=== PATIENT | female | born 1980 | race Caucasian/White ===

== ENCOUNTER 2021-11-18 10:27 | Outpatient (CLI) | payer BC, SELFPAY ==
[2021-11-18 11:59] LABS: Chloride* 102 mmol/L (96-114); Potassium* 4.7 mmol/L (3.6-5.1); Sodium* 139 mmol/L (135-149)
[2021-11-18 12:02] LABS: Blood Urea Nitrogen* 11 mg/dL (5-24); Carbon Dioxide* 27 mmol/L (20-32); Creatinine* 0.7 mg/dL (0.5-1.5); Estimated Glomerular Filt Rate 112 ml/min; Glucose* 96 mg/dL (60-115)
[2021-11-18 12:03] LABS: Calcium* 10.3 mg/dL (8.4-10.6)
== END 2021-11-18 10:28 | disposition home or self-care (01) ==
LOC: NFLDREF 10:28
PROVIDERS: Visit Provider Family Medicine
DX: E87.6 Hypokalemia (principal); I10 Essential (primary) hypertension
CPT/HCPCS: 80048

== ENCOUNTER 2021-11-22 09:48 | Emergency (ER) | payer BC, SELFPAY ==
[2021-11-22] VITALS (9 sets, daily range): BP systolic 113–178; BP diastolic 70–86; PULSE 53–97; RESP 18–21; TEMP 37.1; O2SAT 96–98; BMI 39.9
--- NOTE | 2021-11-22 10:33 | ED_ITS ---
HPI - General Adult General Time Seen by Provider: 10:33 Date Seen: 11/22/21 Chief complaint: Weakness Stated complaint: Chest pain, low bp Time Seen by Provider: 11/22/21 10:32 Source: patient and RN notes reviewed Mode of arrival: ambulatory Limitations: no limitations History of Present Illness HPI narrative: Patient is a 41-year-old female coming in with complaints of some chest heaviness and headache. She has had a complex history recently. About 2 weeks ago she was hospitalized for 2 days at [facility]. She had a syncopal episode well at [facility]. She started to feel dizzy and stood up from a high top and her mom was able to help her down to the ground. They took her from [facility] directly to [facility] so she could see Cardiology. She states she never did see Cardiology but had an echo and a CT will [facility]. They were able to tell me that she was in bigeminy. This is the 1st time she has ever been noted to be having frequent PVCs. With the syncopal episode her blood pressure was low and her pulse was low. She is scheduled to see Cardiology here on the of this month. She just is not feeling well. The tried initiating her on metoprolol XL 25 mg twice a day but within a couple of days of taking this she was just so fatigued and wiped out, did not tolerated. Dr. Alonzo her primary had her try to take a half dose of the metoprolol and she tried this for couple days and was intolerant due to symptoms. They are planning on trying her on what sounds to be Cardizem or diltiazem but he wanted her to have the metoprolol out of her system. She has an event monitor on right now which she is supposed to turn back in tomorrow. This is through [facility]. With the syncopal episode, she had an underlying respiratory infection. She had tested for strep and COVID a and was told they were negative. She had testing the day before the syncopal episode. Being on metoprolol her blood pressure went low as well. She has stated that her blood pressures are up and down and all over the place. After taking metoprolol, 1 time her systolic was 98 and she felt symptomatic with that. Related Data Home Medications Medication Instructions Recorded Confirmed drospirenone 3 mg-ethinyl 1 tab PO 11/07/21 11/18/21 estradiol 0.02 mg tablet (Vestura (28)) ibuprofen 200 mg tablet 600 mg PO Q6H PRN 11/18/21 11/18/21 Previous Rx's Medication Instructions Recorded diltiazem HCl 120 mg capsule,24 120 mg PO QDAY #30 caps 11/25/21 hr,extended release Allergies Allergy/AdvReac Type Severity Reaction Status Date / Time No Known Drug Allergies Allergy Verified 11/18/21 09:08 Review of Systems Status of ROS: Reports: 10 or more systems reviewed and unremarkable except as noted in History and below [facility] Medical History (Updated 11/22/21 @ 15:20 by Nohemi Matos MD) History of acute otitis externa Hypertension URI (upper respiratory infection) Social History Smoking Status: Never smoker Do you use any of these nicotine containing products: None Second hand tobacco smoke exposure: No How often do you have a drink containing alcohol: never How often do you have six or more drinks on one occasion: Never AUDIT-C Alcohol total score: 0 Non-prescribed substance use: denies use service: No Exam Const: Vital Signs, click to edit/add: Vital Signs - 24 hr 11/22/21 10:00 11/22/21 12:00 11/22/21 12:30 Temperature 98.8 F Pulse Rate [Right Pulse Oximeter] 53 L 75 74 Respiratory Rate 18 21 Blood Pressure [Ri ght Upper Arm] 178/82 H 147/86 H 113/74 Pulse Oximetry 98 96 96 Oxygen Delivery Me thod Room Air Room Air Room Air 11/22/21 13:00 11/22/21 13:30 Temperature Pulse Rate [Right Pulse Oximeter] 97 93 Respiratory Rate Blood Pressure [Ri ght Upper Arm] 135/78 130/83 Pulse Oximetry 97 97 Oxygen Delivery Me thod Room Air Room Air Documenting provider has reviewed patient's vital signs: yes Common normals: no apparent distress, oriented x3, no limitations, healthy appearing, alert and well nourished General appearance: cooperative, comfortable and well kempt Nutritional appearance: overweight HENMT: Common normals: normocephalic, head/scalp atraumatic, hearing grossly normal bilaterally, external ears normal, nasal mucous membranes and turbinates normal, moist oral mucous membranes, oropharynx normal, dentition normal and gingiva normal Head and scalp: normocephalic and atraumatic Nose: nasal mucous membranes and turbinates normal External ear: external ears normal Eye: Common normals: PERRL, EOMs intact bilaterally, conjunctivae normal and no scleral icterus Conjunctiva: conjunctiva(e) normal Pupil: PERRL Neck & C-Spine: Common normals: full ROM, no lymphadenopathy, supple, no meningeal signs, no JVD and thyroid normal Thyroid: thyroid normal Resp: Common normals: normal respiratory effort, no retractions, no use of accessory muscles and clear to auscultation bilaterally Auscultation: clear to auscultation bilaterally Cardio: Common normals: no JVD, regular rate, regular rhythm (With ectopy noted that coincides with PVCs on the monitor), S1 normal heart sound, S2 normal heart sound, no gallops, no clicks and no murmurs Rate: regular rate Rhythm: regular rhythm (With ectopy noted that coincides with PVCs on the monitor) Heart sounds: S1 normal and S2 normal GI: Common normals: Normal to inspection, nondistended, normoactive bowel sounds present, soft to palpation, non-tender, no hepatosplenomegaly, no masses and no bruits Palpation: soft and no hepatosplenomegaly Extremity: Common normals: normal to inspection, full ROM, normal capillary refill, no joint enlargement, no clubbing, cyanosis or edema, no calf tenderness and no pedal edema Neuro: Common normals: oriented x3, CN's II-XII intact bilaterally, moves all extremities, no focal motor deficits and no sensory deficits noted Sensorium/orientation: alert Meningeal signs: no meningeal signs Speech: speech normal Gait (neuro): normal gait Psych: Appearance: well ket Course Course Hospital Course: Will obtain portable chest x-ray, have her on cardiac monitoring and pulse oximetry. We are going to give her 1000 mg of Tylenol for her headache at this point. We will get appropriate labs. Besides the headache, she has a nonfocal neurologic exam. Will likely talk to Cardiology once I have some of mild laboratory evaluation back. Watching on the monitor she goes into PVCs in a bigeminy and trigeminy pattern and then will have just irregular PVCs briefly. They seem to be unifocal morphology including on the EKGs. On the director of cardiac rehabilitation when I was in with her I did see brief couple 2nd run of sinus tachycardia in the low 100s, about 110 when I was watching. Consultations Consultation #1: Did speak with cardiology on-call through [facility]. Went through the history, patient's current symptoms. He recommended that patient does follow up outpatient with Cardiology. At times later in the course she was in more consistent sinus rhythm. Blood pressures were in the 130s 140s near the end of her stay here. When I questioned her just a while ago, she really cannot feel the PVCs. And is obviously quite symptomatic with use of metoprolol. I will try to talk to Dr. Alonzo regarding her situation. The site worker from [facility] did not recommend any further interventions. Time: 14:15 Vital Signs Vital signs: Initial Vital Signs Temperature 98.8 F 11/22/21 10:00 Temperature Source Temporal Artery Scan 11/22/21 10:00 Pulse Rate 53 L 11/22/21 10:00 Respiratory Rate 18 11/22/21 10:00 Blood Pressure 178/82 H 11/22/21 10:00 Blood Pressure Mean 114 11/22/21 10:00 Blood Pressure Position Sitting 11/22/21 10:00 Pulse Oximetry 98 11/22/21 10:00 Oxygen Delivery Method 11/22/21 10:00 Vital Signs Temperature 98.8 F 11/22/21 10:00 Pulse Rate 53 L 11/22/21 10:00 Respiratory Rate 18 11/22/21 10:00 Blood Pressure 178/82 H 11/22/21 10:00 Pulse Oximetry 98 11/22/21 10:00 Oxygen Delivery Method 11/22/21 10:00 Temperature 98.8 F 11/22/21 10:00 Pulse Rate 60 11/22/21 15:30 Respiratory Rate 21 11/22/21 14:30 Blood Pressure 170/79 H 11/22/21 15:30 Pulse Oximetry 97 11/22/21 15:30 Oxygen Delivery Method 11/22/21 15:30 Medical Decision Making Lab Data Lab results reviewed: Yes I reviewed the patient's lab results Labs: Lab Results 11/22/21 11/22/21 11/22/21 Range/Units 11:15 11:15 11:15 WBC 10.90 (4.50-11.00) K/uL RBC 4.82 (4.00-5.20) m/uL Hgb 13.7 (12.0-16.0) gm/dL Hct 41.4 (33.0-51.0) % MCV 86 (80-100) fL MCH 28 (26-34) pg MCHC 33 (32-36) gm/dL RDW Coeff of Saloni 12.6 (11.5-15.5) % Plt Count 322 (140-440) K/uL Neut % (Auto) 55.2 (42.0-72.0) % Lymph % (Auto) 33.8 (20-44) % [place] % (Auto) 9.4 (0.0-11.0) % Eos % (Auto) 0.6 (0.0-7.0) % Baso % (Auto) 0.7 (0.0-3.0) % Neut # (Auto) 6.02 (1.7-7.0) K/uL Lymph # (Auto) 3.68 H (0.90-2.90) K/uL [place] # (Auto) 1.00 H (0.00-0.90) K/UL Eos # (Auto) 0.07 (0.00-0.50) K/uL Baso # (Auto) 0.08 (0.00-0.30) K/uL Abs Immat Gran (auto) 0.03 (0.00-0.30) K/uL D-Dimer Quant (PE/DVT) 0.30 (0.00-0.50) ug/ml VBG pH (7.32-7.43) VBG pCO2 (40-50) mmHG VBG pO2 (25-47) mmHG VBG HCO3 (21-28) mmol/L Sodium 139 (135-149) mmol/L Potassium 4.4 (3.6-5.1) mmol/L Chloride 107 (96-114) mmol/L Carbon Dioxide 22 (20-32) mmol/L BUN 10 (5-24) mg/dL Creatinine 0.6 (0.5-1.5) mg/dL Estimated Creat Clear 130.25 Estimated GFR 116 ml/min Glucose 90 (60-115) mg/dL Lactate (0.5-1.9) mmol/L Calcium 9.5 (8.4-10.6) mg/dL Magnesium (1.5-2.6) mg/dL Total Bilirubin 0.3 (0.1-1.5) mg/dL AST 52 H (12-35) U/L ALT 28 (4-35) U/L Alkaline Phosphatase 91 (40-150) U/L C-Reactive Protein 1.3 H (0.5-1.0) mg/dL NT-Pro-B Natriuret Pep (0-125) PG/mL Total Protein 7.4 (6.0-8.3) g/dL Albumin 4.2 (3.3-5.0) g/dL TSH (0.270-4.200) uIU/mL POC Troponin I (0.01-0.04) ng/ml 11/22/21 11/22/21 11/22/21 Range/Units 11:15 11:15 11:15 WBC (4.50-11.00) K/uL RBC (4.00-5.20) m/uL Hgb (12.0-16.0) gm/dL Hct (33.0-51.0) % MCV (80-100) fL MCH (26-34) pg MCHC (32-36) gm/dL RDW Coeff of Saloni (11.5-15.5) % Plt Count (140-440) K/uL Neut % (Auto) (42.0-72.0) % Lymph % (Auto) (20-44) % [place] % (Auto) (0.0-11.0) % Eos % (Auto) (0.0-7.0) % Baso % (Auto) (0.0-3.0) % Neut # (Auto) (1.7-7.0) K/uL Lymph # (Auto) (0.90-2.90) K/uL [place] # (Auto) (0.00-0.90) K/UL Eos # (Auto) (0.00-0.50) K/uL Baso # (Auto) (0.00-0.30) K/uL Abs Immat Gran (auto) (0.00-0.30) K/uL D-Dimer Quant (PE/DVT) (0.00-0.50) ug/ml VBG pH 7.433 H (7.32-7.43) VBG pCO2 39 L (40-50) mmHG VBG pO2 36.1 (25-47) mmHG VBG HCO3 26 (21-28) mmol/L Sodium (135-149) mmol/L Potassium (3.6-5.1) mmol/L Chloride (96-114) mmol/L Carbon Dioxide (20-32) mmol/L BUN (5-24) mg/dL Creatinine (0.5-1.5) mg/dL Estimated Creat Clear Estimated GFR ml/min Glucose (60-115) mg/dL Lactate 1.5 (0.5-1.9) mmol/L Calcium (8.4-10.6) mg/dL Magnesium 2.0 (1.5-2.6) mg/dL Total Bilirubin (0.1-1.5) mg/dL AST (12-35) U/L ALT (4-35) U/L Alkaline Phosphatase (40-150) U/L C-Reactive Protein (0.5-1.0) mg/dL NT-Pro-B Natriuret Pep 573 H (0-125) PG/mL Total Protein (6.0-8.3) g/dL Albumin (3.3-5.0) g/dL TSH 1.150 (0.270-4.200) uIU/mL POC Troponin I (0.01-0.04) ng/ml 11/22/21 Range/Units 11:15 WBC (4.50-11.00) K/uL RBC (4.00-5.20) m/uL Hgb (12.0-16.0) gm/dL Hct (33.0-51.0) % MCV (80-100) fL MCH (26-34) pg MCHC (32-36) gm/dL RDW Coeff of Saloni (11.5-15.5) % Plt Count (140-440) K/uL Neut % (Auto) (42.0-72.0) % Lymph % (Auto) (20-44) % [place] % (Auto) (0.0-11.0) % Eos % (Auto) (0.0-7.0) % Baso % (Auto) (0.0-3.0) % Neut # (Auto) (1.7-7.0) K/uL Lymph # (Auto) (0.90-2.90) K/uL [place] # (Auto) (0.00-0.90) K/UL Eos # (Auto) (0.00-0.50) K/uL Baso # (Auto) (0.00-0.30) K/uL Abs Immat Gran (auto) (0.00-0.30) K/uL D-Dimer Quant (PE/DVT) (0.00-0.50) ug/ml VBG pH (7.32-7.43) VBG pCO2 (40-50) mmHG VBG pO2 (25-47) mmHG VBG HCO3 (21-28) mmol/L Sodium (135-149) mmol/L Potassium (3.6-5.1) mmol/L Chloride (96-114) mmol/L Carbon Dioxide (20-32) mmol/L BUN (5-24) mg/dL Creatinine (0.5-1.5) mg/dL Estimated Creat Clear Estimated GFR ml/min Glucose (60-115) mg/dL Lactate (0.5-1.9) mmol/L Calcium (8.4-10.6) mg/dL Magnesium (1.5-2.6) mg/dL Total Bilirubin (0.1-1.5) mg/dL AST (12-35) U/L ALT (4-35) U/L Alkaline Phosphatase (40-150) U/L C-Reactive Protein (0.5-1.0) mg/dL NT-Pro-B Natriuret Pep (0-125) PG/mL Total Protein (6.0-8.3) g/dL Albumin (3.3-5.0) g/dL TSH (0.270-4.200) uIU/mL POC Troponin I 0.01 (0.01-0.04) ng/ml Imaging Data Chest x-ray: Attestation: I have reviewed the pertinent imaging results. Radiologist's impression: Patient: RANGEL EDWARDS Facility:?[facility] Patient ID:?[id number] Site Patient ID:?[id number]. Site :?[id number] Study:?XRay Chest 1v portable-11/22/2021 11:10:30 AM Ordering Physician:Eric Song Final Report: INDICATION: Chest heaviness. Holter monitor in place COMPARISON: None TECHNIQUE: Single view of the chest was acquired FINDINGS: TUBES AND LINES: Electronic device with associated electrodes overlying the thorax HEART AND MEDIASTINUM: The heart size is normal. The mediastinal contour appears normal for patient age. LUNGS AND PLEURAL SPACES: The lungs appear normal.The pleural spaces are unremarkable. OSSEOUS STRUCTURES: Age-appropriate appearance. No acute focal finding. IMPRESSION: No evidence of active pulmonary disease. Dictated by Andre Brunner MD @ 11/22/2021 11:21:25 AM (Electronic Signature) ECG Data Attestation: I personally reviewed and interpreted this ECG as follows: (Sinus, 97 with bigeminy; sinus rhythm 83 beats per minute with frequent PVCs, compensatory pause) Critical Care Time Critical Care Time Critical Care Time: No Discharge Plan Discharge Clinical Impression: Elevated blood pressure reading, Bigeminy, Premature ventricular contraction Condition: Stable Instructions: Heart Healthy Diet (DC), Hypertension (ED), Premature Ventricular Contractions (ED) Additional Instructions: With your blood pressure readings being up at times, it is always recommended to try to do lifestyle modification. Healthy interventions at any point are always in her best interest. Minimizing caffeine, alcohol, heart healthy lifestyle are all things to consider. You need to keep your cardiology appointment, can conta ct them to see if they might have a cancellation somewhere and be able to move you up to a closer time. Otherwise, do recommend follow-up with your primary in clinic within the next week or so. I will try to talk to him about her ED visit today and see if there is anything else he may recommend. Activity Level: Activity as Tolerated Discharge Diet: Heart Healthy (2 gm sodium, low fat) Prescriptions: No Action drospirenone-ethinyl estradiol [Vestura (28)] 3-0.02 mg tablet 1 tab PO Label Comments: TAKE 1 TABLET BY MOUTH EVERY DAY ibuprofen 200 mg tablet 600 mg PO Q6H PRN diltiazem HCl 120 mg capsule,extended release 24 hr 120 mg PO QDAY Qty: 30 0RF Follow Up/Referrals: Provider,Not a Local [Referring] - Stand Alone Forms: Room 8 Studioth Info Instructions
--- NOTE | 2021-11-22 10:46 | CRLHL7_ITS ---
For Patients: As a result of the Century Cures Act, medical imaging exams and procedure reports are released immediately into your electronic medical record. You may view this report before your referring provider. If you have questions, please contact your health care provider. INDICATION: Chest heaviness. Holter monitor in place COMPARISON: None TECHNIQUE: Single view of the chest was acquired FINDINGS: TUBES AND LINES: Electronic device with associated electrodes overlying the thorax HEART AND MEDIASTINUM: The heart size is normal. The mediastinal contour appears normal for patient age. LUNGS AND PLEURAL SPACES: The lungs appear normal.The pleural spaces are unremarkable. OSSEOUS STRUCTURES: Age-appropriate appearance. No acute focal finding. IMPRESSION: No evidence of active pulmonary disease. Dictated by nAdre Brunner MD @ 11/22/2021 11:21:25 AM (Electronically Signed)
[2021-11-22 11:27] LABS: HCO3 VBG 26 mmol/L (21-28); Lactate* 1.5 mmol/L (0.5-1.9); PCO2 VBG 39 mmHG (40-50); PO2 VBG 36.1 mmHG (25-47); pH VBG 7.433 (7.32-7.43)
[2021-11-22 11:29] LABS: Basophils Absolute Auto 0.08 K/uL (0.00-0.30); Basophils Percent Auto 0.7 % (0.0-3.0); Eosinophils Absolute Auto 0.07 K/uL (0.00-0.50); Eosinophils Percent Auto 0.6 % (0.0-7.0); Hematocrit 41.4 % (33.0-51.0); Hemoglobin* 13.7 gm/dL (12.0-16.0); Immature Granulocytes Abs Auto 0.03 K/uL (0.00-0.30); Lymphocytes Absolute Auto 3.68 K/uL (0.90-2.90); Lymphocytes Percent Auto 33.8 % (20-44); Mean Corpuscular HGB Conc 33 gm/dL (32-36); Mean Corpuscular Hemoglobin 28 pg (26-34); Mean Corpuscular Volume 86 fL (80-100); Monocytes Percent Auto 9.4 % (0.0-11.0); Neutrophils Absolute Auto 6.02 K/uL (1.7-7.0); Neutrophils Percent Auto 55.2 % (42.0-72.0); Platelet Count* 322 K/uL (140-440); RDW Coefficient of Variation % 12.6 % (11.5-15.5); Red Blood Count 4.82 m/uL (4.00-5.20)
[2021-11-22 11:56] LABS: Slide Review Reflex No
[2021-11-22] MEDS: ACETAMINOPHEN 500 MG TABLET 1000 MG PO (12:28)
[2021-11-22 13:33] LABS: Troponin, Point-of-Care* 0.01 ng/ml (0.01-0.04)
[2021-11-22 13:39] LABS: Albumin* 4.2 g/dL (3.3-5.0); Chloride* 107 mmol/L (96-114)
[2021-11-22 13:40] LABS: Potassium* 4.4 mmol/L (3.6-5.1); Sodium* 139 mmol/L (135-149)
[2021-11-22 13:42] LABS: Creatinine* 0.6 mg/dL (0.5-1.5); Est. Creatinine Clearance* 130.25; Estimated Glomerular Filt Rate 116 ml/min
[2021-11-22 13:43] LABS: Alanine Aminotransferase* 28 U/L (4-35); Alkaline Phosphatase* 91 U/L (40-150); Aspartate Amino Transferase* 52 U/L (12-35); Bilirubin Total* 0.3 mg/dL (0.1-1.5); Blood Urea Nitrogen* 10 mg/dL (5-24); Calcium* 9.5 mg/dL (8.4-10.6); Carbon Dioxide* 22 mmol/L (20-32); Glucose* 90 mg/dL (60-115); Total Protein* 7.4 g/dL (6.0-8.3)
[2021-11-22 13:45] LABS: C Reactive Protein* 1.3 mg/dL (0.5-1.0)
--- NOTE | 2021-11-22 13:49 | ED.NURSE ---
dr eye will speak to card at [facility]. has continued to have frequent pvs. does continue to have bigeminy at times.
[2021-11-22 13:52] LABS: NT Pro B Type NatriureticPept* 573 PG/mL (0-125)
== END 2021-11-22 17:13 | disposition home or self-care (01) ==
PROVIDERS: Emergency Provider Family Medicine; PCP Family Medicine
DX: R00.8 Other abnormalities of heart beat (principal); I49.3 Ventricular premature depolarization; I10 Essential (primary) hypertension
CPT/HCPCS: 36415; 71045; 80053; 82803; 83605; 83735; 83880; 84443; 84484; 85025; 85379; 86140; 93005; 94761; 99284; A9270

== ENCOUNTER 2022-06-24 16:49 | Outpatient (CLI) | payer BC, SELFPAY ==
--- NOTE | 2022-06-24 17:00 | CRLHL7_ITS ---
For Patients: As a result of the Century Cures Act, medical imaging exams and procedure reports are released immediately into your electronic medical record. You may view this report before your referring provider. If you have questions, please contact your health care provider. INDICATION: Leg pain and swelling. TECHNIQUE: Ultrasound venous duplex lower right extremity. Compression venous exam was performed using oates-scale, color Doppler, and spectral Doppler analysis. COMPARISON: None. FINDINGS: Deep veins: Sonographic imaging demonstrates the right common femoral, deep femoral, superficial femoral, popliteal, posterior tibial and the contralateral left common femoral veins to be fully compressible with normal color Doppler blood flow. Superficial veins: Greater saphenous vein is fully compressible. No popliteal cyst. IMPRESSION: Normal right lower extremity venous ultrasound, no sign of deep venous thrombosis. Dictated by Krishna Franco MD @ 06/24/2022 6:43:24 PM (Electronically Signed)
== END 2022-06-24 16:50 | disposition home or self-care (01) ==
LOC: US 16:50
PROVIDERS: PCP Family Medicine; Visit Provider Family Medicine
DX: M79.661 Pain in right lower leg (principal); M79.89 Other specified soft tissue disorders
CPT/HCPCS: 93971

== ENCOUNTER 2022-11-03 20:53 | Outpatient (CLI) | payer BC, SELFPAY | END 2022-11-03 20:54 | disposition home or self-care (01) | LOC: SLEEP 20:53 | PROVIDERS: PCP Family Medicine; Visit Provider Internal Medicine | DX: G47.33 Obstructive sleep apnea (adult) (pediatric) (principal); E66.01 Morbid (severe) obesity due to excess calories | CPT/HCPCS: 95811; A9270 ==

== ENCOUNTER 2022-12-27 07:05 | Outpatient (CLI) | payer BC, SELFPAY ==
--- NOTE | 2022-12-27 07:15 | CRLHL7_ITS ---
For Patients: As a result of the Century Cures Act, medical imaging exams and procedure reports are released immediately into your electronic medical record. You may view this report before your referring provider. If you have questions, please contact your health care provider. INDICATION: Elevated liver function tests. TECHNIQUE: Right upper quadrant ultrasound. COMPARISON: Correlation is made with an abdominopelvic CT August 04, 2022. FINDINGS: The liver is echogenic suggesting fatty infiltration or other intrinsic hepatic parenchymal process. Right pedicle is mildly prominent measuring 19.5 cm in cephalocaudal extent. Single mobile gallstone. No evidence for cholecystitis. Normal gallbladder wall of 2 mm. Normal common bile duct 4 mm. The pancreas is unremarkable. No hydronephrosis of the right kidney which measures 14.2 x 4.6 x 7.0 cm. The visualized abdominal aorta and IVC are normal. IMPRESSION: 1. Echogenic liver suggesting fatty infiltration. The liver is mildly enlarged measuring 19.5 cm cephalocaudal extent. 2. Cholelithiasis without cholecystitis. Dictated by Sly Sidhu MD @ 12/27/2022 11:12:47 AM (Electronically Signed)
== END 2022-12-27 07:06 | disposition home or self-care (01) ==
PROVIDERS: PCP Family Medicine; Visit Provider Obstetrics & Gynecology
DX: R79.89 Other specified abnormal findings of blood chemistry (principal); K80.20 Calculus of gallbladder without cholecystitis without obstruction
CPT/HCPCS: 76705

== ENCOUNTER 2024-10-17 17:10 | Emergency (ER) | payer BC, SELFPAY ==
--- OUTSIDE RECORDS SUMMARY | 2024-10-17 17:13 | XMS_ITS | Clinical Summary ---
Author Organization [employer] [facility] [employer] [facility] Address [address] [place] [id number] Care Team Providers Care Accounting Machine Operator Name Role Phone Pcp, No Primary Care Provider Unavailabl e Allergies No known active allergies Medications dilTIAZem SR (CARDIZEM SR) 120 mg extended release 12 hr capsule Take 1 Capsule (120 mg) by mouth two times daily. 0 2 Active dilTIAZem (DILACOR XR; DILTIA XT) 240 mg Extended-Releas e capsuleIndicati ons:Hypertensio n Take 1 Capsule (240 mg) by mouth once daily. 90 Capsule 3 2 Active valsartan-hydro chlorothiazide, 160-12.5 mg, (Diovan HCT) 160-12.5 mg per tabletIndicatio ns:Hypertension Take 1 Tablet by mouth once daily. Due for cardiology appointment, please call to schedule for further refills. 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 Gender Identity Not on file Sexual Orientation Not on file Obstetrics History Last Filed Vital Signs Vital Sign Reading Time Taken Comments Blood Pressure 180/80 12/10/2021 3:49 PM CDT Pulse 80 12/10/2021 3:49 PM CDT Temperature 37.5 C (99.5 F) 11/14/2010 10:29 AM CDT Respiratory Rate 14 12/10/2021 3:49 PM CDT Oxygen Saturation - - Inhaled Oxygen Concentration - - Weight 125.6 kg (277 lb) 12/10/2021 3:49 PM CDT Height - - Body Mass Index - - Plan of Treatment Health Maintenance Due Date Last Done Comments Tetanus booster 1992 Depression screening for age 12+ 1993 HIV for age 15-65 1996 BMI (ht and wt on same day) for age 18+ 06/03/1999 Hepatitis C screening for ag e 18-79 06/03/1999 Hepatitis B series for 19+ ( 1 of 3 - 19+ 3-dose series) 2000 Pap test for age 21-65 2002 COVID-19 vaccine series ( - 2023- season) 2023 Influenza Vaccine (#1) 2024 Pneumococcal series for age 6-49 Aged Out No longer eligible based on patient's age to complete this topic Insurance [facility] Care Teams Accounting Machine Operator Relationship Specialty Start Date End Date Pcp, No . PCP - General 11/14/10
--- OUTSIDE RECORDS SUMMARY | 2024-10-17 17:13 | XMS_ITS | Patient Health Record ---
Author Organization [facility] Address [address] [place] [address] Support Name Relationship Address Phone Virginia Wynne Guarantor Unknown Reason For Referral No Information Plan Of Treatment No Information
--- OUTSIDE RECORDS SUMMARY | 2024-10-17 17:13 | XMS_ITS | Clinical Summary ---
Author Organization [facility] Address [address] [place] [address]. [place] [address] Care Team Providers Care Willow Machine Tender Name Role Phone Gaurav Alonzo MD Primary Care Provider [phone] Alexis Arauz MD Unavailable [phone] Allergies No known active allergies Medications drospirenone-e thinyl estradiol (NIC) 3-0.02 MG tablet Take 1 tablet by mouth daily Vestura Usually takes at 06:30 AM Active valsartan-hydr ochlorothiazid e (DIOVAN HCT) 160-12.5 MG tablet Take 1 tablet by mouth daily 2 Active hydrochlorothi azide (HYDRODIURIL) 12.5 MG tablet Take 12.5 mg by mouth daily 11/11/19 22 Discontinued Active Problems Problem Noted Date Diagnosed Date Morbid obesity 03/21/2022 Bigeminy 11/08/2021 Near syncope 11/08/2021 Vaginal delivery 01/21/2014 Headache 01/07/2014 Indication for care in labor or delivery 014 Immunizations Immunization Administration Dates Next Due TDAP (Adacel,Boostrix) 11/22/2013 Social History Tobacco Use Types Packs/Day Years Used Date Smoking Tobacco: Never Tobacco Cessation:Counseling Given: No Alcohol Use Standard Drinks/Week Comments No 0 (1 standard drink = 0.6 oz pur e alcohol) Adolescent Education Answer Date Record ed Getting School Help Needed Not on file 12/10 Comments Unknown Sex and Gender Information Value Date Recorded Sex Assigned at Not on file Legal Sex Female 4:40 AM CDA TEACHER Gender Identity Not on file Sexual Orientation Not on file Last Filed Vital Signs Vital Sign Reading Time Taken Comments Blood Pressure 132/89 05/06/2022 3:06 PM CDA TEACHER Pulse 103 05/06/2022 3:06 PM CDA TEACHER Temperature 36.7 C (98 F) 04/04/2022 7:00 AM CDA TEACHER Respiratory Rate 18 04/04/2022 2:00 PM CDA TEACHER Oxygen Saturation 98% 05/06/2022 3:06 PM CDA TEACHER Inhaled Oxygen Concentration - - Weight 128.4 kg (283 lb 1.6 oz) 05/06/2022 3:06 PM CDA TEACHER Height 175.3 cm (5' 9) 05/06/2022 3:06 PM CDA TEACHER Body Mass Index 41.81 05/06/2022 3:06 PM CDA TEACHER Plan of Treatment Health Maintenance Due Date Last Done Comments ADVANCE CARE PLANNING 1981 ANNUAL REVIEW OF HM ORDERS 1981 MAMMO SCREENING 1981 HEPATITIS B VACCINE (1 of 3 - 19+ 3-dose series) 2000 PAP 2002 YEARLY PREVENTIVE VISIT 09/17/2020 09/18/2019 LIPID 2021 COVID-19 VACCINE ( season) 2023 02/16/2021, 07/01/2020, 06/10/2020 DTAP/TDAP/TD VACCINE (2 - Td or Tdap) 11/23/2023 11/22/2013 PHQ-2 (once per calendar year) 2024 INFLUENZA VACCINE (#1) 2024 01/26/2009 DIABETES SCREENING 04/04/2025 04/04/2022, 0 11/09/2021, 11/08/2021, Additional history exists ZOSTER VACCINE (1 of 2) 06/03/2031 HIV SCREENING Completed 07/09/2013 HEPATITIS C SCREENING Completed 08/15/2019 HPV VACCINE (No Doses Required) Completed MENINGITIS VACCINE Aged Out No longer eligible based on patient's age to complete this topic PNEUMOCOCCAL VACCINE: PEDIATRICS (0 to 5 YEARS) AND AT-RISK PATIENTS (6 to 49 YEARS) Aged Out No longer eligible based on patient's age to complete this topic Procedures Procedure Name Priority Date/Time Associated Diagnosis Comments BASIC METABOLIC PANEL STAT 04/04/2022 7:19 AM CDA TEACHER HIV 1 AND 2 ANTIBODY ([facility]) Routine 07/09/2013 from Last 3 Months or Most Recently Relevant to Health Maintenance Results * Basic metabolic panel (04/04/2022 7:19 AM [facility]) Sodium 137 136 - 145 mmol/L 04/04/2022 8:01 AM [facility] Potassium 4.0 3.4 - 5.3 mmol/L 04/04/2022 8:01 AM [facility] Chloride 100 98 - 107 mmol/L 04/04/2022 8:01 AM [facility] Carbon Dioxide (CO2) 26 22 - 29 mmol/L 04/04/2022 8:01 AM [facility] Anion Gap 11 7 - 15 mmol/L 04/04/2022 8:01 AM [facility] Urea Nitrogen 11.4 6.0 - 20.0 mg/dL 04/04/2022 8:01 AM [facility] Creatinine 0.71 0.51 - 0.95 mg/dL 04/04/2022 8:01 AM [facility] Calcium 9.2 8.6 - 10.0 mg/dL 04/04/2022 8:01 AM [facility] Glucose 94 70 - 99 mg/dL 04/04/2022 8:01 AM [facility] GFR Estimate >90 >60 mL/min/1.7 3m2 04/04/2022 8:01 AM [facility] Comment:Effective February 112020 eGFRcr in adults is calculated using the 2020 CKD-EPI creatinine equation which includes age and gender (Tobi et al., NEJM, DOI: 10.1056/DMEUhq7031849) Blood STRUCTURE OF RIGHT UPPER LIMB / Unknown Venipuncture / Unknown 04/04/2022 7:19 AM CDA TEACHER 04/04/2022 7:22 AM [facility] us Alexis Welch MD LAB - BLOOD ORDERABLES Final Re sult LABORATORY [facility] [address], [address] [place] [address], [facility] [phone] * HIV 1 and 2 Antibody ([facility]) (07/09/2013) HIV 1&2 Antibody negative Blood specimen (specimen) us Patient Reported LAB - BLOOD ORDERABLES Final Re sult from Last 3 Months or Most Recently Relevant to Health Maintenance Insurance #2 [place] [address] NONE (Work) [address] [place] [id number] [facility] Advance Directives For more information, please contact: [phone] * Full Code (Latest Code Status on File) Date Activated Date Inactivated Comments 11/08/2021 9:58 PM 11/10/2021 5:55 PM All basic an d advanced life-sustaining interventions are performed as appropriate Question Answer Comments Code status determined by: Discussion with rhys nt/ legal decision maker Care Teams Willow Machine Tender Relationship Specialty Start Date End Date Gaurav Alonzo MD PCP - General Family Practice 10/08/16 Alexis Arauz MD [address] [place] [id number] Cardiovascular Disease 02/21/22
--- OUTSIDE RECORDS SUMMARY | 2024-10-17 17:13 | XMS_ITS | Continuity of Care Document ---
Author Organization [facility] Address [address] [place] [address] Insurance Providers Payer Plan Claims Address Claims Phone Policy Number Group Number Relation Employer Guarantor Name Guarantor Guarantor Address Guarantor Phone [employer] [facility] [employer] [facility] [address], [place] [address] [id number] Problems Unknown Problems Results No Results Allergies, adverse reactions, alerts No known allergies and adverse reactions Medications No administered medications reported Vital Signs Date Vital Result Comment 07/09/2024 Body Height (8302-2) 1.8301448378088 m Body Weight (22804-8) 127.99468966174 kg Body Mass Index (87511-1) 42.57 kg/m2 Social History No smoking Hx information available
--- OUTSIDE RECORDS SUMMARY | 2024-10-17 17:13 | XMS_ITS | Encounter Summary ---
Author Organization [facility] Address [address] [place] [address]. [place] [address] Care Team Providers Care Consumer Attorney Name Role Phone Gaurav Alonzo MD Primary Care Provider [phone] Alexis Arauz MD Unavailable [phone] Alexis Arauz MD Unavailable [phone] Mary Weinberg PA-C Unavailable [phone] Alexis Arauz MD Unavailable [phone] Mary Weinberg PA-C Unavailable [phone] Encounter Details Date Type Department Care Team (Late st Contact Info) Description [place]20[place] [facility] [place] [facility] [address] [place] [id number] Alexis Arauz MD [address] [facility] [address] [place] [id number] Social History Tobacco Use Types Packs/Day Years Used Date Smoking Tobacco: Never Alcohol Use Standard Drinks/Week Comments No 0 (1 standard drink = 0.6 oz pur e alcohol) Comments Unknown Sex and Gender Information Value Date Recorded Sex Assigned at Not on file Legal Sex Female 4:40 AM CHECKER LOADER Gender Identity Not on file Sexual Orientation Not on file COVID-19 Exposure Response Date Recorded In the last 10 days, have taylor keith been in contact with someone who was confirmed or suspected to have Coronavirus/COVID-19? No / Unsure 04/04/2022 6:34 AM CHECKER LOADER documented as of this encounter Plan of Treatment Not on file documented as of this encounter Visit Diagnoses Not on filedocumented in this encounter Care Teams Consumer Attorney Relationship Specialty Start Date End Date Gaurav Alonzo MD PCP - General Family Practice 10/08/16 Alexis Arauz MD [address] [place] [id number] Cardiovascular Disease 02/21/22 Alexis Arauz MD [address] [place] [id number] Assigned Heart and Vascular Provider 03/26/22 05/13/22 Mary Weinberg PA-C [address] [place] [id number] Assigned Heart and Vascular Provider 05/14/22 07/08/22 Alexis Arauz MD [address] [place] [id number] Assigned Heart and Vascular Provider 07/09/22 07/15/22 Mary Weinberg PA-C [address] [place] [id number] Assigned Heart and Vascular Provider 07/16/22 12/03/23 documented as of this encounter
--- OUTSIDE RECORDS SUMMARY | 2024-10-17 17:13 | XMS_ITS | Encounter Summary ---
Author Organization [facility] Address [address] [place] [address]. [place] [address] Care Team Providers Care Price Accuracy Supervisor Name Role Phone Gaurav Alonzo MD Primary Care Provider Alexis Arauz MD Unavailable [phone] Alexis Arauz MD Unavailable [phone] Mary Weinberg PA-C Unavailable [phone] Alexis Arauz MD Unavailable [phone] Mary Weinberg PA-C Unavailable [phone] Encounter Details Date Type Department Care Team (Late st Contact Info) Description 03/[place]/20[place] [facility] [place] [facility] [address] [place] [phone] Janette Hernandez Social History Tobacco Use Types Packs/Day Years Used Date Smoking Tobacco: Never Alcohol Use Standard Drinks/Week Comments No 0 (1 standard drink = 0.6 oz pur e alcohol) Comments Unknown Sex and Gender Information Value Date Recorded Sex Assigned at Not on file Legal Sex Female 4:40 AM INTERLACER Gender Identity Not on file Sexual Orientation Not on file COVID-19 Exposure Response Date Recorded In the last 10 days, have yo u been in contact with someone who was confirmed or suspected to have Coronavirus/COVID-19? No / Unsure 03/21/2022 2:37 PM INTERLACER documented as of this encounter Plan of Treatment Not on file documented as of this encounter Visit Diagnoses Not on filedocumented in this encounter Care Teams Price Accuracy Supervisor Relationship Specialty Start Date End Date Gaurav Alonzo MD PCP - General Family Practice 10/08/16 Alexis Arauz MD [address] [place] [address] Cardiovascular Disease 02/21/22 Alexis Arauz MD [address] [place] [address] Assigned Heart and Vascular Provider 03/26/22 05/13/22 Mary Weinberg PA-C [address] [place], [place] [address] Assigned Heart and Vascular Provider 05/14/22 07/08/22 Alexis Arauz MD [address] [place] [address] Assigned Heart and Vascular Provider 07/09/22 07/15/22 Mary Weinberg PA-C [address] [place] [address] Assigned Heart and Vascular Provider 07/16/22 12/03/23 documented as of this encounter
[2024-10-17 17:25] VITALS: BP 159/85; PULSE 106; RESP 20; TEMP 37.1; O2SAT 98
--- NOTE | 2024-10-17 18:08 | CRLHL7_ITS ---
For Patients: As a result of the Century Cures Act, medical imaging exams and procedure reports are released immediately into your electronic medical record. You may view this report before your referring provider. If you have questions, please contact your health care provider. Indication: PT WAS AT 10/16/24 AND HAD HER BP TAKEN. TODAY HAS SEVERE PAIN IN AREA MARKED WITH BB ON JESUS MANUEL Technique: CT right humerus without contrast. Comparison: None. Findings: Normal appearance of the superficial soft tissues and musculature beneath the external marker along the volar aspect of the arm. No visualized acute fracture. No dislocation of the shoulder. Curvilinear osseous hyperdensity extending along the humeral greater tuberosity, compatible with rotator cuff calcific tendinopathy. Notably, the inferior aspect of the humerus is outside the field of view. Moderate acromioclavicular joint space narrowing. The glenohumeral joint space is maintained. Unremarkable appearance of the visualized right hemithorax. Impression: No acute findings in the visualized right arm. Please note that all CT scans at this facility use dose modulation, iterative reconstruction, and/or weight-based dosing when appropriate to reduce radiation dose to as low as reasonably achievable. Dictated by Ubaldo Rucker MD @ 10/17/2024 7:03:42 PM (Electronically Signed)
--- NOTE | 2024-10-17 18:12 | ED.GENADULT ---
HPI - General Adult General Date Seen: 10/17/24 Chief complaint: Extremity Pain/Injury, Upper Stated complaint: R upper arm pain Time Seen by Provider: 10/17/24 18:02 History of Present Illness HPI narrative: Patient is a 44-year-old woman who presents with right upper extremity pain. She was at urgent care yesterday for some upper respiratory symptoms and her blood pressure was checked twice, it was somewhat elevated in the 170s. She says that since then she has had severe pain in a very localized area of her right upper extremity. She has tried ibuprofen but says it does not help. She feels that it feels warm to the touch. No bruising or swelling, no erythema. She does not have any numbness or tingling. Pain does radiate a little bit to the elbow but she notes a very small area where it seems to be coming from. Related Data Home Medications ?Medication ?Instructions ?Recorded ?Confirmed drospirenone 3 mg-ethinyl 1 tab PO QDAY 01/18/22 10/17/24 estradiol 0.02 mg tablet (NIC (28)) valsartan 160 mg tablet 160 mg PO DAILY 11/18/23 10/17/24 Previous Rx's ?Medication ?Instructions ?Recorded azithromycin 250 mg tablet See Rx Instructions PO .COMPLEX 5 10/16/24 days #6 tabs benzonatate 100 mg capsule 100 mg PO TID PRN cough #30 caps 10/16/24 hydrocodone 5 mg-acetaminophen 325 1 tab PO Q8H PRN pain #6 tabs 10/17/24 mg tablet Allergies Allergy/AdvReac Type Severity Reaction Status Date / Time No Known Drug Allergies Allergy Verified 10/17/24 17:28 Review of Systems Status of ROS: Reports: 6 or more systems reviewed and unremarkable except as noted in History and below [facility] Medical History History of palpitations ?Z87.898 - Personal history of other specified conditions (ICD-10) Biliary dyskinesia (08/22/19) ?K82.8 - Other specified diseases of gallbladder (ICD-10) Surgical History History of appendectomy (08/04/22) ?Z90.49 - Acquired absence of other specified parts of digestive tract (ICD-10) History of cardiac radiofrequency ablation (04/04/22) ?Z98.890 - Other specified postprocedural states (ICD-10) Social History Highest level of school completed/degree received: Bachelor's degree Smoking Status: Never smoker Do you use any of these nicotine containing products: None Second hand tobacco smoke exposure: No How often do you have a drink containing alcohol: never How often do you have six or more drinks on one occasion: Never AUDIT-C Alcohol total score: 0 Non-prescribed substance use: denies use Caffeine: Yes (Coffee daily) service: No Exam Narrative: Exam Narrative: Vital signs reviewed In general, alert, nontoxic woman. She looks comfortable. She is holding her right arm straight be side her body. Extremities: Examination of the right arm shows no bruising, deformity, swelling, erythema, or rash. She has an area of tenderness which is focal, I do not feel any underlying fluctuance or mass. Distal CMS is intact. She is able to flex at the elbow although she says it is painful to do so. Compartments are soft. Const: Vital Signs, click to edit/add: Vital Signs - 24 hr 10/17/24 17:25 Temperature 98.8 F Pulse Rate [Pulse Oximeter] 106 H Respiratory Rate 20 Blood Pressure [Ri ght Upper Arm] 159/85 H Pulse Oximetry 98 Oxygen Delivery Me thod Room Air Course Course ED Course: Overall, exam is fairly benign, but she is concerned that something significant is wrong as she has never had this kind of experience before. Discussed possible nerve injury, she does not have symptoms overly suggestive of nerve compression at this time, but in absence of any other findings this may be the issue. I will give a CT scan just make sure that there is no evidence of deeper injury, exam is somewhat limited by body habitus. CT scan read by Radiology is negative for any acute findings. She has calcific tendinopathy of the rotator cuff which I do not think is likely contributing to her symptoms. She did not have significant improvement with the Toradol. She is frustrated that I cannot tell her wire arm is hurting. With only 2 compressions from the blood pressure cuff my sense that this is significant nerve trauma is relatively low, but discussed that that is not something that would show up on CT scan. She does not have any complaints right now consistent with neuropathy. I recommended a trial of rest, I can give her some [place] for pain control at home over the next day or 2. I would like her to follow up with primary care early next week for recheck and if she is not improving then perhaps specialty referral would be indicated. Discussed reasons to return such as significant swelling, redness, neurologic changes. She declined a work note. Vital Signs Vital signs: Initial Vital Signs Temperature 98.8 F 10/17/24 17:25 Temperature Source Temporal Artery Scan 10/17/24 17:25 Pulse Rate 106 H 10/17/24 17:25 Respiratory Rate 20 10/17/24 17:25 Blood Pressure 159/85 H 10/17/24 17:25 Blood Pressure Mean 109 H 10/17/24 17:25 Blood Pressure Position Sitting 10/17/24 17:25 Pulse Oximetry 98 10/17/24 17:25 Oxygen Delivery Method Room Air 10/17/24 17:25 Vital Signs Temperature 98.8 F 10/17/24 17:25 Pulse Rate 106 H 10/17/24 17:25 Respiratory Rate 20 10/17/24 17:25 Blood Pressure 159/85 H 10/17/24 17:25 Pulse Oximetry 98 10/17/24 17:25 Oxygen Delivery Method Room Air 10/17/24 17:25 Temperature 98.8 F 10/17/24 17:25 Pulse Rate 106 H 10/17/24 17:25 Respiratory Rate 20 10/17/24 17:25 Blood Pressure 159/85 H 10/17/24 17:25 Pulse Oximetry 98 10/17/24 17:25 Oxygen Delivery Method Room Air 10/17/24 17:25 Medications Administered Medications: Discontinued Medications Generic Name Dose Route Start Last Admin Trade Name Freq PRN Reason Stop Dose Admin Ketorolac Tromethamine 30 mg 10/17/24 18:11 10/17/24 18:26 Ketorolac 30 Mg/Ml Inj IM 10/17/24 18:12 30 mg ONCE ONE Administration Discharge Plan Discharge Clinical Impression: Right arm pain Patient Disposition: Home, Self-Care Condition: Stable Instructions: Arm Pain (ED) Additional Instructions: Continue to take ibuprofen, 400 mg 3 times daily with food for the next few days. Sling for comfort if you like. [place] if needed for more severe uncontrolled pain. Your imaging today does not show any evidence of soft tissue swelling or other injury. You have evidence of chronic tendinopathy of your rotator cuff. I do not believe this is causing your symptoms today. I would make an appointment to follow up in clinic early next week for recheck. If at any time you are markedly worse, developed significant swelling, redness, fever or other new significant symptoms return to the ER. Prescriptions: New hydrocodone-acetaminophen 5-325 mg tablet 1 tab PO Q8H PRN (Reason: pain) Qty: 6 0RF No Action benzonatate 100 mg capsule 100 mg PO TID PRN (Reason: cough) Qty: 30 0RF drospirenone-ethinyl estradiol [NIC (28)] 3-0.02 mg tablet 1 tab PO QDAY valsartan 160 mg tablet 160 mg PO DAILY azithromycin 250 mg tablet See Rx Instructions PO .COMPLEX 5 Days Qty: 6 0RF Rx Instructions: For 250 mg dose pack: take 500 mg today (day 1), then 250 mg for 4 days (days 2-5) PO Follow Up/Referrals: Gaurav Alonzo MD [Primary Care Provider, Family Practice] Stand Alone Forms: [employer] Info Instructions
== END 2024-10-17 19:35 | disposition home or self-care (01) ==
PROVIDERS: Emergency Provider Emergency Medicine; PCP Family Medicine
DX: M79.621 Pain in right upper arm (principal)
CPT/HCPCS: 73200; 96372; 99283; 99284; J1885